=== PATIENT | male | born 1965 ===

== ENCOUNTER 2018-02-02 06:07 | Inpatient (IN) | payer MEDICARE, MEDICAID ==
[2018-01-21 06:54] VITALS: BMI 34.7
--- NOTE | 2018-02-02 07:19 | CP.PCM.HP ---
History of Present Illness - History of Present Illness History of Present Illness: 52 M who failed conservative management, presents today for elected right total knee arthroplasty Allergies to Penicillin N hx of [place], stroke, blood clots, bleeding disorders Present on Admission - Present on Admission Any Indicators Present on Admission: No History of DVT/PE: No History of Uncontrolled Diabetes: No Review of Systems - Cardiovascular Additional comments: No CP - Respiratory Additional comments: No SOB Past Patient History - Past Medical History & Family History Past Medical History?: Yes - Past Social History Smoking Status: Current Some Days Smoker - CARDIAC Hx Cardiac Disorders: No - PULMONARY Hx Respiratory Disorders: Yes Hx Asthma: Yes (NEVER HOSPITALIZED) - NEUROLOGICAL Hx Paralysis: No - HEENT Hx HEENT Problems: No - RENAL Hx Chronic Kidney Disease: No - ENDOCRINE/METABOLIC Hx Endocrine Disorders: No - HEMATOLOGICAL/ONCOLOGICAL Hx Blood Disorders: No Hx Blood Transfusions: No - INTEGUMENTARY Hx Dermatological Problems: No - MUSCULOSKELETAL/RHEUMATOLOGICAL Hx Falls: No - GASTROINTESTINAL Hx Gastrointestinal Disorders: No - GENITOURINARY/GYNECOLOGICAL Hx Genitourinary Disorders: No Hx Reproductive Disorders: No - PSYCHIATRIC Hx Substance Use: Yes (MARIJAUNA OCCASIONALLY) - SURGICAL HISTORY Hx Surgeries: Yes Hx Orthopedic Surgery: Yes (RIGHT KNEE MINISCUS REPAIR) - ANESTHESIA Hx Anesthesia Reactions: No Hx Malignant Hyperthermia: No Meds Allergies/Adverse Reactions: Allergies Allergy/AdvReac Type Severity Reaction Status Date / Time Penicillins Allergy Severe RASH Verified 01/21/18 06:55 cats Allergy Severe RASH Uncoded 01/21/18 06:55 Physical Exam - Constitutional Appears: Well, No Acute Distress - Head Exam Head Exam: ATRAUMATIC, NORMAL INSPECTION, NORMOCEPHALIC - Neck Exam Neck exam: Positive for: Full Rom, Normal Inspection - Respiratory Exam Respiratory Exam: NORMAL BREATHING PATTERN - Cardiovascular Exam Cardiovascular Exam: RRR - Expanded Lower Extremities Exam Right Knee exam: tenderness (calf and thigh are soft, nontender. NVI distally ) - Back Exam Back exam: NORMAL INSPECTION - Neurological Exam Neurological exam: Alert, Oriented x3 - Skin Skin Exam: Dry, Intact, Normal Color, Warm Assessment & Plan (1) Osteoarthritis of right knee Status: Acute - Assessment and Plan (Free Text) Assessment: Patient medically optimized for surgery. Risks,benefits and alternatives discussed and patients verbalizes understanding and would like to proceed. NPO T&C
[2018-02-02] MEDS ORDERED: Bupivacaine 0.5% Inj(30mL) ONE (07:22)
[2018-02-02 07:25] LABS: URINE APPEARANCE CLEAR (CLEAR); URINE BILIRUBIN NEGATIVE (NEGATIVE); URINE BLOOD NEGATIVE (NEGATIVE); URINE COLOR YELLOW (YELLOW); URINE GLUCOSE (UA) NEGATIVE (NEGATIVE); URINE LEUKOCYTE ESTERASE NEGATIVE Leu/uL (NEGATIVE); URINE PROTEIN NEGATIVE mg/dL (<30 mg/dL); URINE UROBILINOGEN 0.2 E.U./dL (<1 E.U./dL)
[2018-02-02] MEDS ORDERED: Midazolam 2 MG/2 ML VIAL ONE (07:27)
[2018-02-02] MEDS ORDERED: Propofol 10 mg/ml Inj (20 ML) ONE ×2 (07:27→10:29)
[2018-02-02] MEDS ORDERED: Rocuronium 10 mg/ml (5 ml) ONE ×2 (07:34→08:23)
[2018-02-02] MEDS ORDERED: Clindamycin 150 mg/mL Inj ONE (07:43)
[2018-02-02] MEDS ORDERED: Bupivacaine Liposomal Inj 20 ml ONE (08:00)
[2018-02-02] MEDS ORDERED: Tranexamic Acid 2 ML ONE (08:00)
[2018-02-02] MEDS ORDERED: Vancomycin 1 g Inj ONE (09:08)
[2018-02-02] MEDS ORDERED: Non Formulary Medication (Gabapentin [Neurontin] 800 MG) PO SCH (10:00)
[2018-02-02] MEDS ORDERED: Neostigmine Methylsulfate 3mg/3ml Syringe IV ONE (10:25)
[2018-02-02] MEDS ORDERED: HYDROmorphone 0.5 mg/0.5 ml ISec IVP PRN (11:22)
--- NOTE | 2018-02-02 11:40 | PCM.SURG1 ---
Surgeon's Initial Post Op Note - Surgeon's Notes Surgeon: Quinn Bella MD Cemetery Keeper: Zan Foster PA-C, Brianne Drake PA-C Type of Anesthesia: General Endo Anesthesia Administered By: Dr. Patel Pre-Operative Diagnosis: right knee osteoarthritis Operative Findings: see full note Post-Operative Diagnosis: same Operation Performed: Right total knee arthroplasty Specimen/Specimens Removed: none Estimated Blood Loss: EBL {In ML}: 250 Blood Products Given: N/A Drains Used: Hemovac Post-Op Condition: Fair Date of Surgery/Procedure: 02/02/18 Time of Surgery/Procedure: 11:40
[2018-02-02] MEDS ORDERED: HYDROmorphone 0.5 mg/0.5 ml ISec ONE ×5 (11:51→12:53)
[2018-02-02] MEDS ORDERED: HYDROmorphone 0.5 mg/0.5 ml ISec IVP ONE ×4 (11:52→12:39)
[2018-02-02] MEDS ORDERED: HYDROmorphone 1 mg/ml ISec IVP STA (12:51)
[2018-02-02] MEDS ORDERED: HYDROmorphone 1 mg/ml ISec IVP ONE (12:55)
--- NOTE | 2018-02-02 13:40 | RAD ---
PROCEDURE: Right Knee Radiographs. HISTORY: s/p TKR pt in PACU COMPARISON: None. FINDINGS: BONES: There is a right knee prosthesis in satisfactory alignment. There are no complicating factors JOINTS: Normal. No osteoarthritis. JOINT EFFUSION: None. OTHER FINDINGS: None. IMPRESSION: There is a right knee prosthesis in satisfactory alignment. There are no complicating factors
[2018-02-02] MEDS ORDERED: Bupivacaine 0.25% Inj(30mL) ONE (15:36)
--- NOTE | 2018-02-02 15:57 | PCM.ANESB7 ---
Adductor Canal Block - Adductor Canal Block Date of Procedure: 02/02/18 Anesthiologist: lillie cortes Pre-Procedure Diagnosis: acute postoperative pain Procedure Performed: Adductor Canal Block Right - Procedure Adductor Canal Block: The procedure was explained to the patient that it is for the post-operative pain management. Consent was obtained after a thorough discussion with the patient regarding the benefits and possible complications of local anesthetic adductor canal block of the femoral nerve. Standard monitors, as defined by the ASA, were applied to the patient. Time-out was held with the circulating nurse to confirm the appropriate block. After applying supplemental oxygen and administering IV Sedation as needed, the patient was placed in supine position with and the operative leg was flexed slightly at the knee and externally rotated as needed, and was kept anatomically stable. The mid-thigh of the RIGHT lower extremity was exposed. The ultrasound transducer was then applied transversely along the medial aspect, about midway down the thigh and the femoral artery and vein were identified in appropriate relation with the sartorius muscle. At this time, the femoral nerve was visualized lateral to the femoral artery within the canal avoiding contact with nerve. After thorough identification, this area area was prepped with Chloroprep solution three times and 1 % Lidocaine was injected subcutaneously for topical anesthesia. At this point, a #22 gauge Stimuplex 4-inch needle was inserted in-plane in a [id number] orientation, and advanced toward the femoral nerve. Advancement was performed carefully under direct ultrasound visualization. . After negative aspiration, __10 cc of 0.25% bupivicaine was injected and this was followed with 10 cc of 0.25% bupivicaine . Under ultrasound guidance the local anesthetics were observed spreading around the femoral nerve. The needle was removed intact and sterile dressing was applied. The patient had stable vital signs, was conscious and in no apparent distress. Patient was awake for procedure, patient tolerated the adductor nerve block well , no complaints, no paresthesias throughout.
[2018-02-02] MEDS: Lactated Ringer's 1,000 ML IV SCH (17:22)
[2018-02-02] MEDS ORDERED: Pneumococcal 23-Valent Vaccine IM ONE (18:16)
[2018-02-02] MEDS: HYDROmorphone 1 mg/ml ISec IVP PRN ×2 (18:46→22:31)
--- NOTE | 2018-02-02 22:20 | OP ---
PROCEDURE DATE: 02/02/2018 PREOPERATIVE DIAGNOSIS: Right knee degenerative joint disease. POSTOPERATIVE DIAGNOSIS: Right knee degenerative joint disease. PROCEDURE: Right total knee arthroplasty. SURGEON: Quinn Bella MD JOB ANALYST: Dr. Bella was assisted by Diane Love, the physician diploma dental assistant, as well as Heladio Drake, the physician diploma dental assistant. Both, Ms. Love and Ms. Drake, were scrubbed and present throughout the entire case and assisted in patient positioning, retraction, and wound closure. TYPE OF ANESTHESIA: General. COMPLICATIONS: None. ESTIMATED BLOOD LOSS: 250 mL. TOURNIQUET TIME: 90 minutes at 300 mmHg. IMPLANT: Biomet Vanguard total knee system. INDICATION FOR PROCEDURE: This is a 52-year-old gentleman presenting with complaints of longstanding right knee pain and instability. Patient had previously undergone a right ACL reconstruction with persistent complaints of pain. After a long period of failed nonsurgical management including injection, physical therapy, bracing, recommendations were for right total knee arthroplasty. The risks and benefits were discussed with the patient and informed consent was obtained. OPERATIVE PROCEDURE: After the surgical site was signed and verified in the preoperative holding area, patient was taken to the operating room and placed supine on the operating room table. After administration of general anesthesia, patient received 900 mg of clindamycin IV. A Mora catheter was inserted. Tourniquet was placed about the right thigh. Care was taken to make sure all bony prominences and nerves were well padded and protected and the right lower extremity was prepped and draped in the usual sterile fashion. Bony landmarks were identified about the right knee and approximately 12-cm longitudinal midline incision was made. Soft tissues were dissected sharply down to the knee joint and medial parapatellar arthrotomy was performed. The ACL, PCL as well as anterior fat pad and the medial and lateral menisci were all resected. Once the proximal tibia had been screw was easily removed. The tunnel was then curetted out through of the tissue. At this point, once the knee joint was adequately exposed, a step drill was used to drill into the medullary canal of the distal femur and an intramedullary distal femoral cutting guide was inserted and pinned into place. Distal femoral resection was performed. Next, the femoral component was sized and the 4-in-1 cut block was placed and anterior and posterior cuts were performed. Next, the box cut on the distal femur was performed and our attention directed to the tibia. The extramedullary tibial guide was pinned and placed. Satisfied with our alignment, a tibial resection was performed. At this point, our extension and flexion gaps were checked and the patient was noted to have full extension and flexion and stable varus and valgus stress and well balanced. At this point, the tibial plate was sized and being careful to maintain proper rotation, medullary canal of the tibia was reamed and punched with the cruciate punch. With the trial tibia, trial femur, and a trial bearing were in place, the knee was taken through range of motion and was noted to have full extension and flexion and stable throughout. Attention was then directed to the patella. Thickness of the patella was measured and patella resection was performed. Patellar button was sized and the holes for patellar button were then drilled. Trial patella was placed and the knee was taken through range of motion. Patient was noted to have some lateral patellar tilt. This was corrected by performing a lateral retinacular release. At this point, all the trial components were removed and the knee joint was pulse lavaged with antibiotic saline solution. Bony surfaces were dried and the actual tibial, femoral, and patellar components were cemented into place. Once the cement had hardened, the knee joint was inspected for any debris and that was again pulse lavaged. Actual bearing was then inserted and locked into place with a cross pin. The tourniquet was deflated and any obvious bleeding was cauterized. Medium Hemovac drain was inserted and arthrotomy was closed using #1 Vicryl suture. Subcutaneous tissue was closed using 0 Vicryl and 2-0 Vicryl sutures and the skin was closed using chichi. A ANGEL negative pressure wound dressing was applied and a knee immobilizer was placed. Patient was awakened from the procedure and taken to the recovery room in stable condition. Quinn Bella MD
[2018-02-02 23:16] VITALS: RESP 20
[2018-02-03] MEDS: HYDROmorphone 1 mg/ml ISec IVP PRN ×6 (02:15→23:18)
[2018-02-03] MEDS: Lactated Ringer's 1,000 ML IV SCH (02:15)
[2018-02-03 06:57] LABS: BASO # 0.03 K/mm3 (0.0-2.0); BASO % 0.3 % (0.0-3.0); EOS # 0.5 (0.0-0.7); EOS % 4.5 % (1.5-5.0); GRAN # 7.57 (1.4-6.5); GRAN % 66.2 % (50.0-68.0); LYMPH # 1.6 (1.2-3.4); LYMPH % 13.5 % (22.0-35.0); MEAN CORPUSCULAR HEMOGLOBIN 28.9 pg (25.0-35.0); MEAN CORPUSCULAR HGB CONC 33.2 g/dl (31.0-37.0); MEAN PLATELET VOLUME 9.2 fl (7.0-11.0); MONO # 1.8 (0.1-0.6); MONO % 15.5 % (1.0-6.0); RBC 4.15 10^6/uL (3.5-6.1); RED CELL DISTRIBUTION WIDTH 14.1 % (11.5-14.5); WHITE BLOOD COUNT 11.4 10^3/ul (4.5-11.0)
[2018-02-03 07:12] LABS: BLOOD UREA NITROGEN 8 mg/dL (7-21); CALCIUM 8.2 mg/dL (8.4-10.5); GFR AFRICAN-AMERICAN > 60; GFR NON-AFRICAN AMERICAN > 60
[2018-02-03] MEDS ORDERED: Albuterol-Ipratrop 3 mg / 0.5 (3 ml) UD IH PRN (07:42)
--- NOTE | 2018-02-03 07:44 | CP.PCM.CON ---
<Lucy Velázquez - Last Filed: 02/03/18 09:54> History of Present Illness - History of Present Illness History of Present Illness: Medicine Consult Note for Kaia Arora PGY2 This is a 52yo male with asthma, DJD, and tobacco abuse who was admitted for R total knee replacement. Medicine was consulted for post-op management. Patient reports feeling well today. He has pain in his R knee which is controlled with Dilaudid and Oxycodone. Patient states he has been having some wheezing. He has not had a BM in 2 days which he said is his normal schedule. He denies chest pain, shortness of breath, nausea/vomiting/diarrhea, fever or chills, numbness/ tingling, dysuria or hematuria. Past medical history: Asthma, DJD, tobacco use and marijuana use Past surgical history: L knee replacement, back surgery Home meds: As per MAR Allergies: PCN, cats Social history: Smokes cigarettes daily for many yrs, smokes marijuana daily x 40yrs, drinks alcohol occasionally Family history: Dad (living)- [place] at age 50 Review of Systems - Review of Systems All systems: reviewed and no additional remarkable complaints except Review of Systems: 12 point ROS reviewed as per HPI and is otherwise negative Past Patient History - Past Medical History & Family History Past Medical History?: Yes - Past Social History Smoking Status: Current Some Days Smoker Alcohol: Occasional Drugs: Cannabis (daily) Home Situation {Lives}: With Family - CARDIAC Hx Cardiac Disorders: No - PULMONARY Hx Respiratory Disorders: Yes Hx Asthma: Yes (NEVER HOSPITALIZED) - NEUROLOGICAL Hx Neurological Disorder: Yes (NEUROPATHY) - HEENT Hx HEENT Problems: No - RENAL Hx Chronic Kidney Disease: No - ENDOCRINE/METABOLIC Hx Endocrine Disorders: No - HEMATOLOGICAL/ONCOLOGICAL Hx Blood Disorders: No - INTEGUMENTARY Hx Dermatological Problems: No - MUSCULOSKELETAL/RHEUMATOLOGICAL Hx Musculoskeletal Disorders: Yes (L KNEE DJD,CELLULITIS,LUMABAR RADICULOPATHY,) Hx Falls: Yes Hx Myasthenia Gravis: Yes - GASTROINTESTINAL Hx Gastrointestinal Disorders: No - GENITOURINARY/GYNECOLOGICAL Hx Genitourinary Disorders: No - PSYCHIATRIC Hx Emotional Abuse: No Hx Physical Abuse: No Hx Substance Use: Yes (OCC. MARIJUANA.LAST SMOKED 2 D AGO.) - SURGICAL HISTORY Hx Surgeries: Yes (RIGHT KNEE ARTHROSCOPY,L KNEE REPLACEMENT,R KNEE REPLACEMENT 02-02-18 BACKSX) Hx Orthopedic Surgery: Yes (RIGHT KNEE MINISCUS REPAIR) - ANESTHESIA Hx Anesthesia Reactions: No Hx Malignant Hyperthermia: No Meds Allergies/Adverse Reactions: Allergies Allergy/AdvReac Type Severity Reaction Status Date / Time Penicillins Allergy Severe RASH Verified 02/02/18 15:47 cats Allergy Severe RASH Uncoded 02/02/18 15:47 - Medications Medications: Current Medications Acetaminophen (Tylenol 325mg Tab) 650 mg PO Q6 [facility] Last Admin: 02/03/18 06:18 Dose: 650 mg Albuterol/Ipratropium (Duoneb 3 Mg/0.5 Mg (3 Ml) Ud) 3 ml IH [id number] HAIRSH Albuterol/Ipratropium (Duoneb 3 Mg/0.5 Mg (3 Ml) Ud) 3 ml IH Q2H PRN PRN Reason: Shortness of Breath Docusate Sodium (Colace) 100 mg PO BID [facility] Last Admin: 02/02/18 17:22 Dose: 100 mg Enoxaparin Sodium (Lovenox) 40 mg SC Q24H [facility] PRN Reason: Protocol Gabapentin (Neurontin) 800 mg PO TID [facility] Last Admin: 02/02/18 17:21 Dose: 800 mg Hydromorphone HCl (Dilaudid) 1 mg IVP Q4H PRN PRN Reason: Pain, severe (8-10) Last Admin: 02/03/18 06:19 Dose: 1 mg Lactated Ringer's (Lactated Ringer's) 1,000 mls @ 100 mls/hr IV .Q10H [facility] Last Admin: 02/03/18 02:15 Dose: 100 mls/hr Multivitamins/Minerals (Therapeutic-M Tab) 1 tab PO DAILY [facility] Nicotine (Nicoderm Cq) 1 patch TD DAILY [facility] Ondansetron HCl (Zofran Inj) 4 mg IVP ONCE PRN PRN Reason: Nausea/Vomiting Oxycodone HCl (Oxycodone Immediate Release Tab) 5 mg PO Q6H PRN PRN Reason: Pain, moderate (4-7) Tizanidine HCl (Zanaflex) 4 mg PO HS [facility] Last Admin: 02/02/18 22:31 Dose: 4 mg Physical Exam - Constitutional Appears: No Acute Distress - Head Exam Head Exam: ATRAUMATIC, NORMAL INSPECTION, NORMOCEPHALIC - Eye Exam Eye Exam: Normal appearance, PERRL Pupil Exam: NORMAL ACCOMODATION, PERRL - ENT Exam ENT Exam: Mucous Membranes Moist - Respiratory Exam Respiratory Exam: Wheezes (diffuse ), NORMAL BREATHING PATTERN. absent: Rales, Rhonchi, Stridor - Cardiovascular Exam Cardiovascular Exam: REGULAR RHYTHM, +S1, +S2. absent: Gallop, Rubs, Systolic Murmur - GI/Abdominal Exam GI & Abdominal Exam: Normal Bowel Sounds, Soft. absent: Mass, Rebound, Rigid, Tenderness - Extremities Exam Extremities exam: Negative for: calf tenderness, pedal edema Additional comments: R leg has dressing in place with drain- drain has sanguinous fluid - Neurological Exam Neurological exam: Alert, CN II-XII Intact, Oriented x3 - Psychiatric Exam Psychiatric exam: Normal Affect, Normal Mood - Skin Skin Exam: Dry, Warm Results - Vital Signs Recent Vital Signs: Last Vital Signs Temp 98 F 02/02/18 23:15 Pulse 74 02/02/18 23:15 Resp 20 02/02/18 23:15 BP 124/71 02/02/18 23:15 Pulse Ox 94 L 02/02/18 23:15 - Labs Result Diagrams: 02/03/18 06:30 02/03/18 06:30 Labs: Laboratory Results - last 24 hr 02/02/18 02/03/18 02/03/18 06:30 06:30 06:30 WBC 11.4 H RBC 4.15 Hgb 12.0 L Hct 36.1 L MCV 87.0 MCH 28.9 MCHC 33.2 RDW 14.1 Plt Count 197 MPV 9.2 Gran % 66.2 Lymph % (Auto) 13.5 L [place] % (Auto) 15.5 H Eos % (Auto) 4.5 Baso % (Auto) 0.3 Gran # 7.57 H Lymph # (Auto) 1.6 [place] # (Auto) 1.8 H Eos # (Auto) 0.5 Baso # (Auto) 0.03 Sodium 138 Potassium 3.9 Chloride 102 Carbon Dioxide 27 Anion Gap 13 BUN 8 Creatinine 0.6 L Est GFR ( Amer) > 60 Est GFR (Non-Af Amer) > 60 Random Glucose 109 Calcium 8.2 L Blood Type A NEGATIVE Antibody Screen Negative BBK History Checked Patient has bt Assessment & Plan - Assessment and Plan (Free Text) Assessment: This is a 52yo male with asthma, DJD, and tobacco abuse who was admitted for 1. S/P R total knee replacement POD #1 2. Asthma 3. Tobacco abuse 4. Marijuanna abuse Plan: Patient is being seen by orthopedist. We will continue pain management with stool softener. He will need incentive spirometer as well as physical therapy. We will place patient on Duonebs for his asthma. He is on a nicotine patch and was counseled on tobacco and marijuana cessation. Patient will be continued on his home medication (Gabapentin and Zanaflex). We will continue GI and DVT prophylaxis. Awaiting physical therapy evaluation. Case seen, discussed and reviewed with Dr. Cortez. Kaia Velázquez PGY2 - Date & Time Date: 02/03/18 Time: 08:00 <Marcio Cortez - Last Filed: 02/03/18 21:28> Meds - Medications Medications: Current Medications Acetaminophen (Tylenol 325mg Tab) 650 mg PO Q6 [facility] Last Admin: 02/03/18 17:22 Dose: 650 mg Albuterol/Ipratropium (Duoneb 3 Mg/0.5 Mg (3 Ml) Ud) 3 ml IH [id number] [facility] Last Admin: 02/03/18 21:14 Dose: 3 ml Albuterol/Ipratropium (Duoneb 3 Mg/0.5 Mg (3 Ml) Ud) 3 ml IH Q2H PRN PRN Reason: Shortness of Breath Cholecalciferol (Vitamin D) 2,000 intlu PO DAILY [facility] Last Admin: 02/03/18 14:40 Dose: 2,000 intlu Docusate Sodium (Colace) 100 mg PO BID [facility] Last Admin: 02/03/18 17:23 Dose: 100 mg Enoxaparin Sodium (Lovenox) 40 mg SC Q24H [facility] PRN Reason: Protocol Last Admin: 02/03/18 10:20 Dose: 40 mg Gabapentin (Neurontin) 800 mg PO TID [facility] Last Admin: 02/03/18 17:23 Dose: 800 mg Hydromorphone HCl (Dilaudid) 1 mg IVP Q4H PRN PRN Reason: Pain, severe (8-10) Last Admin: 02/03/18 18:42 Dose: 1 mg Multivitamins/Minerals (Therapeutic-M Tab) 1 tab PO DAILY [facility] Last Admin: 02/03/18 10:20 Dose: 1 tab Nicotine (Nicoderm Cq) 1 patch TD DAILY [facility] Last Admin: 02/03/18 10:20 Dose: 1 patch Ondansetron HCl (Zofran Inj) 4 mg IVP ONCE PRN PRN Reason: Nausea/Vomiting Oxycodone HCl (Oxycodone Immediate Release Tab) 5 mg PO Q6H PRN PRN Reason: Pain, moderate (4-7) Last Admin: 02/03/18 09:05 Dose: 5 mg Tizanidine HCl (Zanaflex) 4 mg PO HS [facility] Last Admin: 02/02/18 22:31 Dose: 4 mg Results - Vital Signs Recent Vital Signs: Last Vital Signs Temp 98.2 F 02/03/18 14:00 Pulse 93 H 02/03/18 14:00 Resp 20 02/03/18 14:00 BP 163/89 H 02/03/18 14:00 Pulse Ox 94 L 02/03/18 14:00 - Labs Result Diagrams: 02/03/18 06:30 02/03/18 06:30 Labs: Laboratory Results - last 24 hr 02/03/18 02/03/18 02/03/18 06:30 06:30 06:30 WBC 11.4 H RBC 4.15 Hgb 12.0 L Hct 36.1 L MCV 87.0 MCH 28.9 MCHC 33.2 RDW 14.1 Plt Count 197 MPV 9.2 Gran % 66.2 Lymph % (Auto) 13.5 L [place] % (Auto) 15.5 H Eos % (Auto) 4.5 Baso % (Auto) 0.3 Gran # 7.57 H Lymph # (Auto) 1.6 [place] # (Auto) 1.8 H Eos # (Auto) 0.5 Baso # (Auto) 0.03 Sodium 138 Potassium 3.9 Chloride 102 Carbon Dioxide 27 Anion Gap 13 BUN 8 Creatinine 0.6 L Est GFR ( Amer) > 60 Est GFR (Non-Af Amer) > 60 Random Glucose 109 Calcium 8.2 L 25-OH Vitamin D Total < 12.8 L Assessment & Plan - Assessment and Plan (Free Text) Plan: Pt seen and examined. I have reviewed the note of the medical translator and agree with it. I have discussed the assessment and plan with the resident. I have reviewed the patient's labs and medications. His pain is controlled with narcotics. He is going to need PT. He has been placed on a nicotine patch. Will continue to follow. Thank you for the consultation.
[2018-02-03] MEDS: Albuterol-Ipratrop 3 mg / 0.5 (3 ml) UD IH SCH ×3 (07:45→21:14)
[2018-02-03] MEDS: oxyCODONE 5 mg Immediate Release Tab PO PRN ×2 (09:05→22:45)
[2018-02-03] MEDS ORDERED: Enoxaparin 40 mg Syringe SC SCH (10:00)
[2018-02-03] MEDS: Enoxaparin 40 mg Syringe SC SCH (10:20)
[2018-02-03] MEDS: Multivitamin With Minerals Tab PO SCH (10:20)
[2018-02-03] MEDS: Cholecalciferol 1,000 INTLU TAB PO SCH (14:40)
[2018-02-03 22:56] VITALS: O2SAT 96
[2018-02-04] MEDS: Albuterol-Ipratrop 3 mg / 0.5 (3 ml) UD IH SCH ×2 (01:58→07:21)
[2018-02-04] MEDS: HYDROmorphone 1 mg/ml ISec IVP PRN ×2 (03:16→08:30)
[2018-02-04 07:17] LABS: BASO # 0.02 K/mm3 (0.0-2.0); BASO % 0.1 % (0.0-3.0); EOS # 0.5 (0.0-0.7); EOS % 3.5 % (1.5-5.0); GRAN # 10.2 (1.4-6.5); LYMPH # 1.5 (1.2-3.4); LYMPH % 10.2 % (22.0-35.0); MEAN CELL VOLUME 86.6 fl (80.0-105.0); MEAN CORPUSCULAR HEMOGLOBIN 29.7 pg (25.0-35.0); MEAN CORPUSCULAR HGB CONC 34.3 g/dl (31.0-37.0); MONO % 14.2 % (1.0-6.0); RBC 4.04 10^6/uL (3.5-6.1); RED CELL DISTRIBUTION WIDTH 13.7 % (11.5-14.5); WHITE BLOOD COUNT 14.2 10^3/ul (4.5-11.0)
--- NOTE | 2018-02-04 07:17 | CP.PCM.PN ---
<Lucy Velázquez - Last Filed: 02/04/18 12:37> Subjective - Date & Time of Evaluation Date of Evaluation: 02/04/18 Time of Evaluation: 07:00 - Subjective Subjective: Progress Note for Kaia Arora PGY2 Patient seen and examined at bedside. There were no acute overnight events as per nursing staff. Patient states he still has pain in his R knee, but was able to get up and walk with physical therapy. Patient reports he feels constipated. He denies chest pain, shortness of breath, nausea/vomiting/diarrhea, fever/ chills, numbness/tingling, dysuria or hematuria. Objective - Vital Signs/Intake and Output Vital Signs (last 24 hours): Temp Pulse Resp BP Pulse Ox 98.2 F 105 H 20 176/98 H 96 02/03/18 22:00 02/03/18 22:00 02/03/18 22:00 02/03/18 22:00 02/03/18 22:00 Intake and Output: 02/04/18 02/04/18 06:59 18:59 Intake Total 1000 Output Total 2024 Balance -1025 - Medications Medications: Current Medications Acetaminophen (Tylenol 325mg Tab) 650 mg PO Q6 [facility] Last Admin: 02/04/18 05:46 Dose: 650 mg Albuterol/Ipratropium (Duoneb 3 Mg/0.5 Mg (3 Ml) Ud) 3 ml IH [id number] [facility] Last Admin: 02/04/18 01:58 Dose: Not Given Albuterol/Ipratropium (Duoneb 3 Mg/0.5 Mg (3 Ml) Ud) 3 ml IH Q2H PRN PRN Reason: Shortness of Breath Last Admin: 02/04/18 03:30 Dose: 3 ml Cholecalciferol (Vitamin D) 2,000 intlu PO DAILY [facility] Last Admin: 02/03/18 14:40 Dose: 2,000 intlu Docusate Sodium (Colace) 100 mg PO BID [facility] Last Admin: 02/03/18 17:23 Dose: 100 mg Enoxaparin Sodium (Lovenox) 40 mg SC Q24H HARISH PRN Reason: Protocol Last Admin: 02/03/18 10:20 Dose: 40 mg Gabapentin (Neurontin) 800 mg PO TID [facility] Last Admin: 02/03/18 17:23 Dose: 800 mg Hydromorphone HCl (Dilaudid) 1 mg IVP Q4H PRN PRN Reason: Pain, severe (8-10) Last Admin: 02/04/18 03:16 Dose: 1 mg Multivitamins/Minerals (Therapeutic-M Tab) 1 tab PO DAILY [facility] Last Admin: 02/03/18 10:20 Dose: 1 tab Nicotine (Nicoderm Cq) 1 patch TD DAILY [facility] Last Admin: 02/03/18 10:20 Dose: 1 patch Ondansetron HCl (Zofran Inj) 4 mg IVP ONCE PRN PRN Reason: Nausea/Vomiting Oxycodone HCl (Oxycodone Immediate Release Tab) 5 mg PO Q6H PRN PRN Reason: Pain, moderate (4-7) Last Admin: 02/03/18 22:45 Dose: 5 mg Tizanidine HCl (Zanaflex) 4 mg PO HS [facility] Last Admin: 02/03/18 22:47 Dose: 4 mg - Labs Labs: 02/03/18 06:30 02/03/18 06:30 - Constitutional Appears: No Acute Distress - Head Exam Head Exam: ATRAUMATIC, NORMAL INSPECTION, NORMOCEPHALIC - Eye Exam Eye Exam: Normal appearance, PERRL Pupil Exam: NORMAL ACCOMODATION, PERRL - ENT Exam ENT Exam: Mucous Membranes Moist - Respiratory Exam Respiratory Exam: Wheezes (in upper lobes bilaterally ), NORMAL BREATHING PATTERN. absent: Rales, Rhonchi - Cardiovascular Exam Cardiovascular Exam: REGULAR RHYTHM, +S1, +S2. absent: Gallop, Rubs, Murmur - GI/Abdominal Exam GI & Abdominal Exam: Soft, Normal Bowel Sounds. absent: Rigid, Tenderness, Rebound - Extremities Exam Additional comments: R knee dressing in place with drain that has sanginous fluid. - Neurological Exam Neurological Exam: Alert, Awake, CN II-XII Intact, Oriented x3 - Psychiatric Exam Psychiatric exam: Normal Affect, Normal Mood - Skin Skin Exam: Dry, Warm Assessment and Plan - Assessment and Plan (Free Text) Assessment: This is a 52yo male with asthma, DJD, and tobacco abuse who was admitted for 1. S/P R total knee replacement POD #2 2. Vitamin D deficiency 3. Asthma 4. Tobacco abuse 5. Marijuana abuse Plan: Patient is hemodynamically stable. We will continue incentive spirometer, Duonebs and physical therapy. Patient is on Vitamin D as well as GI and DVT prophylaxis. He was placed on a Nicotine patch and counseled on tobacco and drug cessation. As per Orthopedist, patient will be discharged home today with services. Case seen, discussed and reviewed with Dr. Cortez. Kaia Velázquez PGY2 <Marcio Cortez S - Last Filed: 02/04/18 15:51> Objective - Vital Signs/Intake and Output Vital Signs (last 24 hours): Temp Pulse Resp BP Pulse Ox 97.8 F 93 H 20 138/82 96 02/04/18 06:00 02/04/18 06:00 02/04/18 06:00 02/04/18 06:00 02/04/18 06:00 Intake and Output: 02/04/18 02/04/18 06:59 18:59 Intake Total 1000 240 Output Total 2025 400 Balance -1025 -160 - Labs Labs: 02/04/18 06:45 02/04/18 06:45 Assessment and Plan - Assessment and Plan (Free Text) Plan: Pt seen and examined. I have reviewed the note of the clinical medical transcriptionist and agree with it. I have discussed the assessment and plan with the resident. I have reviewed the patient's labs and medications. Pt is confortable and was able to sleep last night. He is going to go home today. Spoke to Dr Frausto's TESTING LEAD. He is going to get out-pt PT. Wound is seen and there is no discharge, erythema.
[2018-02-04 07:28] LABS: BLOOD UREA NITROGEN 6 mg/dL (7-21); CALCIUM 8.6 mg/dL (8.4-10.5); GFR AFRICAN-AMERICAN > 60; GFR NON-AFRICAN AMERICAN > 60
[2018-02-04 07:54] VITALS: BP 138/82; PULSE 93; TEMP 97.8
--- NOTE | 2018-02-04 08:29 | CP.PCM.PN ---
Subjective - Date & Time of Evaluation Date of Evaluation: 02/04/18 Time of Evaluation: 08:03 - Subjective Subjective: Patient POD #2 s/p R TKA. Patient doing ok, states he would like to go home and do home physical. Afebrile Hgb 12 WBC 14.2 R knee: dressings and denisha removed. Incision clean and intact. There is no erythema or drainage. No signs of cellulitis or infection. Moderate to large effusion. Hemovac removed. Incision cleaned with NSS and aquacel dressing applied. Calf and thigh are soft nontender. NVI distally POD #2 s/p R TKA Cont DVT prophylaxis Cont PT Plan to discharge today to home with home physical therapy and a visiting nurse Objective - Vital Signs/Intake and Output Vital Signs (last 24 hours): Temp Pulse Resp BP Pulse Ox 97.8 F 93 H 20 138/82 96 02/04/18 06:00 02/04/18 06:00 02/04/18 06:00 02/04/18 06:00 02/04/18 06:00 Intake and Output: 02/04/18 02/04/18 06:59 18:59 Intake Total 1000 Output Total 2024 Balance -1025 - Medications Medications: Current Medications Acetaminophen (Tylenol 325mg Tab) 650 mg PO Q6 [facility] Last Admin: 02/04/18 05:46 Dose: 650 mg Albuterol/Ipratropium (Duoneb 3 Mg/0.5 Mg (3 Ml) Ud) 3 ml IH [id number] [facility] Last Admin: 02/04/18 07:21 Dose: 3 ml Albuterol/Ipratropium (Duoneb 3 Mg/0.5 Mg (3 Ml) Ud) 3 ml IH Q2H PRN PRN Reason: Shortness of Breath Last Admin: 02/04/18 03:30 Dose: 3 ml Cholecalciferol (Vitamin D) 2,000 intlu PO DAILY [facility] Last Admin: 02/03/18 14:40 Dose: 2,000 intlu Docusate Sodium (Colace) 100 mg PO BID [facility] Last Admin: 02/03/18 17:23 Dose: 100 mg Enoxaparin Sodium (Lovenox) 40 mg SC Q24H HARISH PRN Reason: Protocol Last Admin: 02/03/18 10:20 Dose: 40 mg Gabapentin (Neurontin) 800 mg PO TID [facility] Last Admin: 02/03/18 17:23 Dose: 800 mg Hydromorphone HCl (Dilaudid) 1 mg IVP Q4H PRN PRN Reason: Pain, severe (8-10) Last Admin: 02/04/18 03:16 Dose: 1 mg Multivitamins/Minerals (Therapeutic-M Tab) 1 tab PO DAILY [facility] Last Admin: 02/03/18 10:20 Dose: 1 tab Nicotine (Nicoderm Cq) 1 patch TD DAILY [facility] Last Admin: 02/03/18 10:20 Dose: 1 patch Ondansetron HCl (Zofran Inj) 4 mg IVP ONCE PRN PRN Reason: Nausea/Vomiting Oxycodone HCl (Oxycodone Immediate Release Tab) 5 mg PO Q6H PRN PRN Reason: Pain, moderate (4-7) Last Admin: 02/03/18 22:45 Dose: 5 mg Tizanidine HCl (Zanaflex) 4 mg PO HS [facility] Last Admin: 02/03/18 22:47 Dose: 4 mg - Labs Labs: 02/04/18 06:45 02/04/18 06:45 Assessment and Plan (1) Osteoarthritis of right knee Status: Acute
[2018-02-04] MEDS: Multivitamin With Minerals Tab PO SCH (09:42)
[2018-02-04] MEDS: Cholecalciferol 1,000 INTLU TAB PO SCH (09:43)
[2018-02-04] MEDS: Enoxaparin 40 mg Syringe SC SCH (09:45)
[2018-02-04] MEDS: oxyCODONE 5 mg Immediate Release Tab PO PRN (11:13)
--- NOTE | 2018-02-05 14:06 | CP.PCM.DIS ---
Provider - Provider Date of Admission: 02/02/18 06:07 Attending physician: Quinn Bella MD Primary care physician: Gaurav Paez DO Time Spent in preparation of Discharge (in minutes): 30 Diagnosis - Discharge Diagnosis (1) Osteoarthritis of right knee Status: Acute (2) Vitamin D deficiency Status: Acute Hospital Course - Lab Results Lab Results: Most Recent Lab Values WBC 14.2 10^3/ul (4.5-11.0) H D 02/04/18 06:45 RBC 4.04 10^6/uL (3.5-6.1) 02/04/18 06:45 Hgb 12.0 g/dL (14.0-18.0) L 02/04/18 06:45 Hct 35.0 % (42.0-52.0) L 02/04/18 06:45 MCV 86.6 fl (80.0-105.0) 02/04/18 06:45 MCH 29.7 pg (25.0-35.0) 02/04/18 06:45 MCHC 34.3 g/dl (31.0-37.0) 02/04/18 06:45 RDW 13.7 % (11.5-14.5) 02/04/18 06:45 Plt Count 203 10^3/uL (120.0-450.0) 02/04/18 06:45 MPV 9.0 fl (7.0-11.0) 02/04/18 06:45 Gran % 72.0 % (50.0-68.0) H 02/04/18 06:45 Lymph % (Auto) 10.2 % (22.0-35.0) L 02/04/18 06:45 Bureau % (Auto) 14.2 % (1.0-6.0) H 02/04/18 06:45 Eos % (Auto) 3.5 % (1.5-5.0) 02/04/18 06:45 Baso % (Auto) 0.1 % (0.0-3.0) 02/04/18 06:45 Gran # 10.20 (1.4-6.5) H 02/04/18 06:45 Lymph # (Auto) 1.5 (1.2-3.4) 02/04/18 06:45 Bureau # (Auto) 2.0 (0.1-0.6) H 02/04/18 06:45 Eos # (Auto) 0.5 (0.0-0.7) 02/04/18 06:45 Baso # (Auto) 0.02 K/mm3 (0.0-2.0) 02/04/18 06:45 Sodium 140 mmol/L (132-148) 02/04/18 06:45 Potassium 3.9 mmol/L (3.6-5.0) 02/04/18 06:45 Chloride 101 mmol/L (98-107) 02/04/18 06:45 Carbon Dioxide 26 mmol/L (21-33) 02/04/18 06:45 Anion Gap 17 (10-20) 02/04/18 06:45 BUN 6 mg/dL (7-21) L 02/04/18 06:45 Creatinine 0.7 mg/dl (0.8-1.5) L 02/04/18 06:45 Est GFR ( Amer) > 60 02/04/18 06:45 Est GFR (Non-Af Amer) > 60 02/04/18 06:45 Random Glucose 117 mg/dL (70-110) H 02/04/18 06:45 Calcium 8.6 mg/dL (8.4-10.5) 02/04/18 06:45 25-OH Vitamin D Total < 12.8 NG/ML (30.0-100.0) L 02/03/18 06:30 Urine Color Yellow (YELLOW) 02/02/18 07:05 Urine Appearance Clear (CLEAR) 02/02/18 07:05 Urine pH 6.0 (4.7-8.0) 02/02/18 07:05 Ur Specific [place] 1.020 (1.005-1.035) 02/02/18 07:05 Urine Protein Negative mg/dL (<30 mg/dL) 02/02/18 07:05 Urine Glucose (UA) Negative mg/dL (NEGATIVE) 02/02/18 07:05 Urine Ketones Negative mg/dL (NEGATIVE) 02/02/18 07:05 Urine Blood Negative (NEGATIVE) 02/02/18 07:05 Urine Nitrate Negative (NEGATIVE) 02/02/18 07:05 Urine Bilirubin Negative (NEGATIVE) 02/02/18 07:05 Urine Urobilinogen 0.2 E.U./dL (<1 E.U./dL) 02/02/18 07:05 Ur Leukocyte Esterase Negative Mary/uL (NEGATIVE) 02/02/18 07:05 Blood Type A NEGATIVE 02/02/18 06:30 Antibody Screen Negative 02/02/18 06:30 BBK History Checked Patient has bt 02/02/18 06:30 - Hospital Course Hospital Course: 52M with PMH: right knee osteoarthritis failed conservative management and elected for TKR. Postoperative imaging demonstrated acceptable position of prosthesis. Medical consultation was requested for post operative medical management. Patients post operative course was complicated by acute blood loss anemia, hemodynamically stable and well tolerated, no treatment needed. Patient tolerated PT/OT well. Patient received VTE prophylaxis in the form of lovenox 40mg SQ q24h and venodynes. Patient was instructed to maintain knee immobilizer at night, to remove during the day, and instructed patient to continue aggressive ROM of the knee. PT was discharged home with home physical therapy and a visiting nurse, and continued on home medications as well as Eliquis 2.5mg BID for 10 days then instructed to take ASA 325mg BID after finishing the Eliquis. Patient was WBAT RLE, ambulating with walker, and given instructions for dressing changes and will f/u in Dr. Bella office in 2 weeks. - Date & Time of H&P Date of H&P: 02/05/18 Time of H&P: 14:03 Discharge Exam - Head Exam Head Exam: ATRAUMATIC, NORMAL INSPECTION, NORMOCEPHALIC - Eye Exam Eye Exam: Normal appearance - Neck Exam Neck exam: Full Rom, Normal Inspection - Respiratory Exam Respiratory Exam: NORMAL BREATHING PATTERN - Cardiovascular Exam Cardiovascular Exam: REGULAR RHYTHM - Extremities Exam Additional comments: R knee: dressings and denisha were removed. Hemovac also removed. Incision clean and intact. No erythema or drainage. Moderate effusion. Incision cleaned with NSS and aquacel dressing placed. Calf and thigh are soft and non tender. NVI distally Discharge Plan - Discharge Medications Prescriptions: Apixaban [Eliquis] 2.5 mg PO BID #10 tablet oxyCODONE/Acetaminophen [Percocet 5/325 mg Tab] 1 ea PO Q6 PRN #40 tab PRN Reason: Pain, Severe (8-10) - Follow Up Plan Instructions: Constipation in Adults, Weight-Bearing Exercises, Total Ankle Arthroplasty (DC), Postop Total Knee Replacement Exercises Seated or Standing, Managing Pain After Surgery Additional Instructions: Patient instructed to begin PT, with home PT Instructed patient to take Eliquis 2.5mg BID for ten days, once finished then begin ASA 325mg BID Will see patient in Dr. Bella office in 2 weeks Referrals: Quinn Bella MD [Staff Provider] - Gaurav Paez DO [Primary Care Provider] -
== END 2018-02-04 12:44 | disposition home or self-care (01) | DRG 470 ==
LOC: SDAINP 06:07 → 5RNO 13:27 → EDSTATUS 02-09 07:30
PROVIDERS: ADMIT Orthopaedic Surgery; ATTEND Orthopaedic Surgery
PROC: 0MNN0ZZ Release Right Knee Bursa and Ligament, Open Approach (ICD-10-PCS; 2018-02-02)
PROC: 0SRC0J9 Replacement of Right Knee Joint with Synthetic Substitute, Cemented, Open Approach (ICD-10-PCS; principal; 2018-02-02 07:30)
DX: M17.11 Unilateral primary osteoarthritis, right knee (principal); M17.12 Unilateral primary osteoarthritis, left knee; J45.909 Unspecified asthma, uncomplicated; E55.9 Vitamin D deficiency, unspecified; F12.10 Cannabis abuse, uncomplicated; F17.210 Nicotine dependence, cigarettes, uncomplicated; G70.00 Myasthenia gravis without (acute) exacerbation; G89.18 Other acute postprocedural pain; I25.2 Old myocardial infarction; K59.00 Constipation, unspecified; Z86.73 Personal history of transient ischemic attack (TIA), and cerebral infarction without residual deficits; Z88.0 Allergy status to penicillin; Z96.652 Presence of left artificial knee joint

== ENCOUNTER 2018-10-27 12:22 | Outpatient (CLI) | payer MEDICARE, MEDICAID | END 2018-10-27 12:23 | disposition home or self-care (01) | LOC: RAD 12:23 ==